=== PATIENT | female | born 1985 | race Two or more races ===

== ENCOUNTER 2021-01-26 10:32 | Inpatient (IN) | payer OTHER ==
[~2021-01-26] VITALS: Ht 157.5 cm; Wt 62.7 kg
[~2021-01-26 10:32] MED LIST: DOCU-131 PO; DOCU240C31 PO; FERR220S13 PO; FERR325T23 PO; IBUP-1222 PO; IBUP100T11 PO; OXYC1TAB14 PO
[2021-01-26] MEDS ORDERED: PREN1TAB60 PO (10:45)
[2021-01-26] MEDS ORDERED: EPHEDRINE 50 MG/ML, 1ML IVPush PRN (11:00)
[2021-01-26] MEDS ORDERED: MIDAZOLAM 1 MG/ML, 2ML IV PRN (11:00)
[2021-01-26] MEDS ORDERED: SODIUM CITRATE/CITRIC ACID 30 ML UDC PO ONE (11:00)
[2021-01-26] MEDS ORDERED: HYDROcodone/APAP 7.5-325MG/15ML UDC PO PRN (11:00)
[2021-01-26] MEDS ORDERED: OXYcodone 5 MG/5 ML ORAL.SOL UDC PO PRN (11:00)
[2021-01-26] MEDS ORDERED: PLEASE ENTER HEIGHT AND WEIGHT MC SCH (11:00)
[2021-01-26] MEDS ORDERED: METOCLOPRAMIDE 5 MG/ML, 2ML IV ONE (11:00)
[2021-01-26] MEDS ORDERED: FENTANYL PF 100 MCG/2ML IV PRN (11:00)
[2021-01-26] MEDS ORDERED: PROMETHAZINE 25 MG/ML, 1ML IV PRN (11:00)
[2021-01-26] MEDS ORDERED: METOPROLOL 1 MG/ML, 5ML IV PRN (11:00)
[2021-01-26] MEDS ORDERED: LACTATED RINGERS 1,000 ML IVBOLUS ONE (11:00)
[2021-01-26] MEDS ORDERED: ONDANSETRON 2MG/ML, 2ML IVPush PRN (11:00)
[2021-01-26] MEDS ORDERED: LABETALOL 5MG/ML, 20ML IV PRN (11:00)
[2021-01-26] MEDS ORDERED: ALBUTEROL SULFATE 2.5 MG/3 ML NPPB PRN (11:00)
[2021-01-26] MEDS ORDERED: hydrALAzine 20 MG/ML, 1ML IV PRN (11:00)
[2021-01-26] MEDS ORDERED: HYDROmorphone 2 MG/ML, 1ML IVPush PRN (11:00)
[2021-01-26] MEDS ORDERED: MEPERIDINE/PF 25MG/0.5ML IVPush PRN (11:00)
[2021-01-26] MEDS ORDERED: SODIUM CITRATE/CITRIC ACID 15 ML UDC ONE (11:04)
[2021-01-26] MEDS ORDERED: NEWBORN KIT ONE (11:07)
[2021-01-26 11:08] VITALS: BP 115/74
[2021-01-26] MEDS ORDERED: HYDROmorphone 2 MG/ML, 1ML ONE (11:18)
[2021-01-26] MEDS ORDERED: EPHEDRINE 50 MG/ML, 1ML ONE (11:18)
[2021-01-26] MEDS ORDERED: ONDANSETRON 2MG/ML, 2ML ONE (11:18)
[2021-01-26] MEDS ORDERED: KETOROLAC 30 MG/1 ML ONE (11:18)
[2021-01-26] MEDS ORDERED: OXYTOCIN 10 UNITS/ML, 1ML ONE (11:18)
[2021-01-26] MEDS ORDERED: DEXAMETHASONE 4 MG/ML, 1ML ONE (11:18)
[2021-01-26] MEDS ORDERED: FENTANYL PF 100 MCG/2ML ONE (11:18)
[2021-01-26] MEDS ORDERED: PHENYLEPHRINE 10 MG/ML ONE (11:18)
[2021-01-26] MEDS ORDERED: CEFAZOLIN 1,000 MG ONE (11:18)
[2021-01-26 11:46] LABS: BASOPHILS % (AUTO) 0 % (0-1); EOSINOPHILS % (AUTO) 1 % (1-7); LYMPHOCYTES % (AUTO) 23 % (22-44); MEAN CORPUSCULAR HEMOGLOBIN 31.9 pg (27.0-34.8); MEAN CORPUSCULAR HGB CONC 33.7 g/dL (32.4-35.8); MEAN PLATELET VOLUME 8.3 fL (7.4-10.4); MONOCYTES % (AUTO) 7 % (2-9); NEUTROPHILS % (AUTO) 69 % (42-75); PLATELET COUNT 223 x10^3/uL (130-400); RED CELL DISTRIBUTION WIDTH 17.7 % (9.6-15.2)
[2021-01-26 11:52] LABS: MD NO
[2021-01-26] MEDS ORDERED: OXYTOCIN 30U/ 0.9% NaCL 500ML 500 ML ONE (12:10)
[2021-01-26] MEDS ORDERED: ACETAMINOPHEN 325 MG TABLET PO PRN (14:30)
[2021-01-26] MEDS ORDERED: OXYcodone/APAP 5/325MG TABLET PO PRN ×2 (14:30)
[2021-01-26] MEDS ORDERED: SIMETHICONE 80 MG CHEW TAB PO PRN (14:30)
[2021-01-26] MEDS ORDERED: METHYLERGONOVINE 0.2 MG/ML IM PRN (14:30)
[2021-01-26] MEDS ORDERED: MISOPROSTOL 200 MCG TABLET PR PRN (14:30)
[2021-01-26] MEDS ORDERED: ONDANSETRON 2MG/ML, 2ML IV PRN (14:30)
[2021-01-26] MEDS: OXYTOCIN 30U/ 0.9% NaCL 500ML 500 ML IV SCH (14:41)
[2021-01-26] MEDS: LACTATED RINGERS 1,000 ML IV SCH ×2 (14:44→22:30)
[2021-01-26 16:00] VITALS: BP 158/89
[2021-01-26 17:59] VITALS: BP 125/74
[2021-01-26] MEDS: HYDROcodone/APAP 5/325 TABLET PO PRN ×2 (18:39→22:54)
[2021-01-26] MEDS: DOCUSATE 100 MG CAPSULE PO PRN (19:45)
[2021-01-26] MEDS: KETOROLAC 30 MG/1 ML IV SCH (19:45)
[2021-01-26 19:50] VITALS: BP 139/81
[2021-01-26 20:18] LABS: BASOPHILS % (AUTO) 0 % (0-1); EOSINOPHILS % (AUTO) 0 % (1-7); LYMPHOCYTES % (AUTO) 9 % (22-44); MEAN CORPUSCULAR HEMOGLOBIN 31.7 pg (27.0-34.8); MEAN CORPUSCULAR HGB CONC 33.7 g/dL (32.4-35.8); MONOCYTES % (AUTO) 3 % (2-9); NEUTROPHILS % (AUTO) 89 % (42-75); PLATELET COUNT 233 x10^3/uL (130-400); RED BLOOD COUNT 3.64 x10^6/uL (3.82-5.3); RED CELL DISTRIBUTION WIDTH 18.2 % (9.6-15.2)
[2021-01-26 20:19] LABS: MD NO
[2021-01-27] MEDS: LACTATED RINGERS 1,000 ML IV SCH ×2 (00:30→06:30)
[2021-01-27] MEDS: OXYTOCIN 30U/ 0.9% NaCL 500ML 500 ML IV SCH (00:30)
[2021-01-27 00:45] VITALS: BP 122/75
[2021-01-27] MEDS: KETOROLAC 30 MG/1 ML IV SCH ×4 (01:54→19:44)
[2021-01-27] MEDS: HYDROcodone/APAP 5/325 TABLET PO PRN ×4 (03:21→18:59)
[2021-01-27 04:30] VITALS: BP 112/68
[2021-01-27 07:30] VITALS: BP 118/76
[2021-01-27] MEDS: PRENATAL VIT/IRON/FA 1 EACH TABLET PO SCH (07:45)
[2021-01-27] MEDS: DOCUSATE 100 MG CAPSULE PO PRN ×2 (07:45→18:59)
[2021-01-27 19:33] VITALS: BP 107/69
[2021-01-28] MEDS: KETOROLAC 30 MG/1 ML IV SCH ×2 (02:05→07:49)
[2021-01-28 07:25] VITALS: BP 133/87
[2021-01-28] MEDS: HYDROcodone/APAP 5/325 TABLET PO PRN ×2 (07:49→12:06)
[2021-01-28] MEDS: PRENATAL VIT/IRON/FA 1 EACH TABLET PO SCH (07:49)
[2021-01-28] MEDS: DOCUSATE 100 MG CAPSULE PO PRN (07:49)
[2021-01-28] MEDS ORDERED: IBUP-1222 PO (08:16)
[2021-01-28] MEDS ORDERED: OXYC1TAB14 PO (08:16)
[2021-01-28] MEDS ORDERED: DOCU-131 PO (08:16)
[2021-01-28] MEDS ORDERED: MEPERIDINE/PF 50 MG/ML ONE ×2 (08:44→12:43)
[2021-01-28] MEDS: MEPERIDINE/PF 25MG/0.5ML IM PRN ×2 (08:55→13:03)
[2021-01-28] MEDS ORDERED: DIPH,PERTUSS(ACELL),TET VAC/PF NC IM-VACC ONE ×2 (12:42→14:00)
== END 2021-01-28 13:20 | disposition home or self-care (01) | DRG 787 ==
LOC: LDIP 10:32 → 2NW 15:39
PROVIDERS: ADMIT Obstetrics & Gynecology; ATTEND Obstetrics & Gynecology
PROC: 10D00Z1 Extraction of Products of Conception, Low, Open Approach (ICD-10-PCS; principal; 2021-01-26)
DX: O77.0 Labor and delivery complicated by meconium in amniotic fluid (principal); O44.43 Low lying placenta NOS or without hemorrhage, third trimester; O34.211 Maternal care for low transverse scar from previous cesarean delivery; Z20.822 Contact with and (suspected) exposure to COVID-19; O99.814 Abnormal glucose complicating childbirth; Z37.0 Single live birth; Z3A.39 39 weeks gestation of pregnancy
CPT/HCPCS: 36415; 85025; 86592; 86850; 86900; 87635; 90715; G0378; J0690; J1100; J1170; J1885; J2175; J2405; J3010; J2370; J2590; J2765; J7120